=== PATIENT | female | born 1995 | race Caucasian/White ===

== ENCOUNTER 2016-10-22 22:40 | Emergency (ER) | payer OTHER ==
[~2016-10-22] VITALS: Ht 175.3 cm; Wt 65.9 kg
[2016-10-22 22:46] VITALS: BP 148/77; PULSE 81; TEMP 98.1
[2016-10-22] MEDS ORDERED: ALDACTONE50 MG PO (22:47)
[2016-10-22] MEDS ORDERED: ORTHO TRI-CYCLE1 TA2 PO (22:48)
[2016-10-22] MEDS ORDERED: MACROBID 1100 MG/CAP PO (23:09)
[2016-10-22] MEDS ORDERED: PYRIDIUM200 M1 PO (23:09)
[2016-10-22 23:34] LABS: PH 6 (5-8); SQUAMOUS EPITHELIAL None Seen /hpf; URINE APPEARANCE Clear; URINE BACTERIA Rare /hpf; URINE BILIRUBIN Negative (NEGATIVE); URINE BLOOD 3+ (NEGATIVE); URINE COLOR Amber; URINE GLUCOSE Negative (NEGATIVE); URINE KETONE Negative (NEGATIVE); URINE RBC >50 /hpf; URINE UROBILINOGEN Negative (NEGATIVE); URINE WBC 0-2 /hpf
== END 2016-10-22 23:34 | disposition home or self-care (01) ==
LOC: COL.ER 22:40
PROVIDERS: Emergency Medicine
DX: N39.0 Urinary tract infection, site not specified (principal)